=== PATIENT | female | born 1975 | race Caucasian/White ===

== ENCOUNTER → 2022-03-15 | Outpatient (CLI) | payer MEDICARE, MEDICAID, SELFPAY ==
--- NOTE | 2022-03-15 15:56 | MRI_ITS ---
STUDY: MR Spine Lumbar W/O Contrast 03/15/2022 7:54 PM REASON FOR EXAM: Female, 46 years old. Back pain Pain, bilat leg numbness TECHNIQUE: MR Spine Lumbar W/O Contrast Standardized fat and water weighted pulse sequences were obtained. COMPARISON: None FINDINGS: T12-L1: Normal endplates. Normal disc height, hydration and morphology. Normal bilateral facet joints. Normal central canal and bilateral lateral recesses. Normal bilateral intervertebral neural foramina. Normal lumbar lordosis. There is no substantial scoliosis. Normal conus medullaris that terminates at the L1. Old T11 compression deformity. L1-2: Loss of intervertebral disc height. There is endplate spondylosis of the vertebral body. Normal central canal and intervertebral neuroforamina. There is bilateral facet arthropathy. L2-3: Normal endplates. Normal disc height, hydration and morphology. Normal bilateral facet joints. Normal central canal and bilateral lateral recesses. Normal bilateral intervertebral neural foramina. L3-4: Normal endplates. Normal disc height, hydration and morphology. Normal bilateral facet joints. Normal central canal and bilateral lateral recesses. Normal bilateral intervertebral neural foramina. L4-5: Loss of intervertebral disc height. There is endplate spondylosis of the vertebral body. There is bilateral neural foraminal stenosis at L4-5 . Grade 1 anterolisthesis of L4 on L5 measuring 5.5 mm. There is bilateral facet arthropathy. Narrowing of the lateral recess. Disc desiccation. Compression of exiting bilateral L4 nerve roots. L5-S1: Loss of intervertebral disc height. There is endplate spondylosis of the vertebral body. There is bilateral facet arthropathy. Disc desiccation. Normal visualized sacral ala. Normal visualized paraspinous soft tissue structures. MRI/Spine Lumbar (Routine) IMPRESSION: Multilevel degenerative changes, as described above. L4-5: There is bilateral neural foraminal stenosis at L4-5 . Compression of exiting bilateral L4 nerve roots. Grade 1 anterolisthesis of L4 on L5 measuring 5.5 mm. Narrowing of the lateral recess. Disc desiccation. L5-S1: Disc desiccation. Electronically Signed: Germán Rose MD at 19:58 EDT ,
== END | disposition home or self-care (01) ==
LOC: MRI 15:56
PROVIDERS: PCP Family Medicine
DX: M54.50 Low back pain, unspecified (principal)
CPT/HCPCS: 72148